=== PATIENT | male | born 1970 | race Caucasian/White ===

== ENCOUNTER 2023-11-14 10:34 | Emergency (ER) | payer OTHER ==
[~2023-11-14] VITALS: Ht 167.6 cm; Wt 56.7 kg
[2023-11-14 10:43] VITALS: BP 139/78; PULSE 67; RESP 20; TEMP 97.7; O2SAT 99
[2023-11-14] MEDS ORDERED: MORPHINE SULFATE 4 MG/ML SYR IVP ONE (11:15)
[2023-11-14] MEDS ORDERED: ONDANSETRON 4 MG/2 ML VIAL IVP ONE (11:15)
[2023-11-14] MEDS ORDERED: BACITRACIN OINT 500 UNITS/GM PKT TP ONE ×2 (11:25→12:44)
[2023-11-14 11:55] LABS: BASOPHILS # (AUTO) 0.1 K/uL (0.00-0.22); BASOPHILS % (AUTO) 0.6 % (0.0-2.0); EOSINOPHILS # (AUTO) 0.1 K/uL (0-0.4); HEMATOCRIT 41.5 % (36-52); HEMOGLOBIN 14.5 g/dL (12.0-18.0); LYMPHOCYTES # (AUTO) 1.4 K/uL (2.0-11.5); LYMPHOCYTES % (AUTO) 15.1 % (20.5-51.1); MEAN CORPUSCULAR HEMOGLOBIN 32 pg (27-31); MEAN CORPUSCULAR HGB CONC 35 g/dL (33-37); MEAN CORPUSCULAR VOLUME 92.4 fL (80-94); MONOCYTES # (AUTO) 0.6 K/uL (0.8-1.0); MONOCYTES % (AUTO) 6.8 % (1.7-9.3); NEUTROPHILS % (AUTO) 76.5 % (42.2-75.2); PLATELET COUNT (AUTO) 266 K/uL (140-450); RED BLOOD CELL COUNT(AUTO) 4.49 MIL/uL (4.20-6.10); RED CELL DISTRIBUTION WIDTH 13.3 % (11.6-13.7); WHITE BLOOD COUNT (AUTO) 9.1 K/uL (4.8-10.8)
[2023-11-14 12:11] LABS: ANION GAP 11.6 (8-16); CARBON DIOXIDE 27.7 mmol/L (21-32); POTASSIUM 3.3 mmol/L (3.5-5.1)
[2023-11-14 14:17] VITALS: BP 113/66; PULSE 75; RESP 14; O2SAT 99
== END 2023-11-14 14:17 | disposition home or self-care (01) ==
LOC: MED 10:34
DX: S63.592A Other specified sprain of left wrist, initial encounter (principal); S80.212A Abrasion, left knee, initial encounter; S60.512A Abrasion of left hand, initial encounter; V03.10XA Pedestrian on foot injured in collision with car, pick-up truck or van in traffic accident, initial encounter; Y93.89 Activity, other specified; Y92.89 Other specified places as the place of occurrence of the external cause; Y99.8 Other external cause status
CPT/HCPCS: 36415; 71260; 73030; 73080; 73110; 73502; 73562; 74177; 80048; 85025; 90471; 90715; 96374; 96375; 99285; J2270; J2405; Q9967

== ENCOUNTER 2024-06-22 19:23 | Emergency (ER) | payer MEDICAID, OTHER ==
[~2024-06-22 19:23] MED LIST: LID5T TP
--- NOTE | 2024-06-22 19:49 | NUR ---
PT CALLED X 3 IN LOBBY AND OUTSIDE, NO ANSWER.
--- NOTE | 2024-06-22 20:02 | NUR ---
PT CALLED X 3 NO ANSWER.
--- NOTE | 2024-06-22 21:48 | NUR ---
PATIENT LEFT WITHOUT BEING SEEN BY DR STEELE. NO FURTHER CARE PROVIDED FOR PATIENT.
[2024-06-23] MEDS ORDERED: ACET500T99 PO (20:59)
[2024-06-23] MEDS ORDERED: IBUP-1842 PO (20:59)
[2024-06-23] MEDS ORDERED: VALA1TAB40 PO (20:59)
== END 2024-06-22 21:48 | disposition left against medical advice (07) ==
LOC: MED 19:23
DX: Z53.21 Procedure and treatment not carried out due to patient leaving prior to being seen by health care provider (principal)

== ENCOUNTER 2024-06-23 19:56 | Emergency (ER) | payer MEDICAID ==
[~2024-06-23] VITALS: Ht 162.6 cm; Wt 56.7 kg
[2024-06-23 20:25] VITALS: BP 119/77; PULSE 60; RESP 16; TEMP 97.3; O2SAT 97
[2024-06-23] MEDS ORDERED: VALA1TAB40 PO (20:59)
[2024-06-23] MEDS ORDERED: ACET500T99 PO (20:59)
[2024-06-23] MEDS ORDERED: IBUP-1842 PO (20:59)
[2024-06-23] MEDS: KETOROLAC 30 MG/ML VIAL IM ONE (21:01)
[2024-06-23 21:02] VITALS: BP 112/74; PULSE 62; RESP 16; TEMP 97.3; O2SAT 97
--- NOTE | 2024-06-23 21:02 | NUR ---
Patient discharged with v/s stable. Written and verbal after care instructions given and explained. Patient alert, oriented and verbalized understanding of instructions. Ambulatory with to car. All questions addressed prior to discharge. ID band removed. Patient advised to follow up with PMD. Rx of TYLENOL, MOTRIN, VALACYCLOVIR given. Patient educated on indication of medication including possible reaction and side effects. Opportunity to ask questions provided and answered.
== END 2024-06-23 21:02 | disposition home or self-care (01) ==
LOC: MED 19:56
DX: B02.9 Zoster without complications (principal); Z79.1 Long term (current) use of non-steroidal anti-inflammatories (NSAID); Z79.899 Other long term (current) drug therapy
CPT/HCPCS: 96372; 99283; J1885